=== PATIENT | female | born 1990 | race Two or more races ===

== ENCOUNTER 2018-12-08 13:59 | Inpatient (IN) | payer OTHER ==
[~2018-12-08] VITALS: Ht 165.1 cm; Wt 104.6 kg
[2018-12-08 16:12] VITALS: Ht 165.1 cm; Wt 104.6 kg
[2018-12-08] MEDS ORDERED: PREN-93 PO (16:12)
[2018-12-08 16:13] VITALS: BP 114/62; PULSE 97; RESP 18
--- NOTE | 2018-12-08 16:14 | TRIAGE ---
OB Triage Datetime Report Generated by CPN: 12/08/2018 16:14 Datetime: 12/08/2018 14:55 Stage of : OB Triage Maternal Assessment Level of Consciousness: Fully Conscious Labor Evaluation Frequency: 2UC/HR Monitor Mode: External Duration (sec)2399: 30 Quality: Mild Resting Tone [place]: Relaxed Heart Rate FHR Baseline Rate: 145 Monitor Mode: External US Variability: Moderate 6-25 bpm Accelerations: 15X15 Decelerations: None Category: Category I Pain Assessment Pain Scale: 0 Pain Goal: 3 Vaginal Exam Membrane Status: Intact Vaginal Bleeding: None Datetime: 12/08/2018 14:22 Assessment Type: Triage Maternal Assessment Level of Consciousness: Fully Conscious DTR's/Clonus: DTRs 2+; No Clonus Headache: Denies Blurred Vision: No Respiratory Effort: Unlabored; Regular Rhythm; Equal Expansion Breath Sounds, Left: Clear and Equal Breath Sounds, Right: Clear and Equal Nausea/Vomiting: Denies RUQ Epigastric Pain: Denies Lower Extremities Edema: None Degree: None Upper Extremities Edema: None Degree: None Facial Edema: None Fall Risk Assessment History of Falling: (0) No Secondary Diagnosis: (0) No Ambulatory Aid: (0) Bedrest/Nurse Assist IV Therapy: (0) No Gait: (0) Normal/Bedrest/Immobile Mental Status: (0) Oriented to Own Ability Fall Score: 0 Fall Risk Score Definition: No Risk: No action required Datetime: 12/08/2018 14:21 Time of Arrival: 12/08/2018 13:53 EGA: 26.2 Arrived By: Ambulatory Arrived From: Office Chief Complaint: PT. SENT IN FOR EVAL. OF DFM Movement: Decreased Contractions: Denies/Absent Rupture of Membranes: Denies Vaginal Bleeding: None Vaginal Discharge: Denies Recent Sexual Intercouse: Denies Abdominal Trauma: Not Applicable Patient Complaints: None Time Provider Notified: 12/08/2018 14:52 Provider Notified: JEFF Initial Plan: NST/BPP/EFW Datetime: 12/08/2018 14:15 Monitor Mode: External Monitor Mode: External US
[2018-12-08] MEDS ORDERED: ACETAMINOPHEN 325 MG TAB PO PRN (16:30)
--- NOTE | 2018-12-08 16:57 | HP ---
Date/Time of Note Date/Time of Note DATE: 12/08/18 TIME: 16:49 OB - History Hx of Present Free Text/Dictation 28-year-old week twin gestation at 26 weeks and 2 days with a NARA of 03/14/2019 complaining of decreased movement. She denies nausea, vomiting, shortness of breath, chest pain, headache, visual changes, vaginal bleeding or LOF. Chief Complaint: Decreased movement Estimated Due Date: Mar 14, 2019 : 7 Para: 5 Spontaneous : 1 Therapeutic : 0 Care: Good Care Ultrasounds: Normal mid trimester US Obstetrical Complications: None Medical Complications: None Past Family/Social History * Past Medical, Surgical, Family and Obstetric Histories reviewed from chart. OB Admission Exam Vital Signs Vital Signs Vital Signs Date Temp Pulse Resp B/P (MAP) Pulse Ox O2 O2 Flow FiO2 Time Delivery Rate 12/08/18 99.0 97 18 114/62 Room Air 16:13 (79) Physical Exam HEENT: WNL Heart: Rhythm Normal Lungs: Clear Abdomen: WNL Extremities: Normal Membranes: Intact Heart Rate: 140's Accelerations: Accelerations Present Decelerations: No Decelerations Varibility: Moderate Contractions on Admission: < 5 Minutes Apart Intensity: Mild OB Assessment/Plan Other plan: 28-year-old 7 para 2316 with twin gestation at 26 weeks and 2 days with uterine contractions - FHRs: No sign of metabolic acidosis- Category I - Continuous EFM, toco - CBC, blood type and screen - Urinalysis with urine culture - Obtained records from her primary OB office - Patient discussed with Dr. Chavarria, she would like IV fluid given. If still has contraction the nurse contact her - Please see the orders Admission, management, possible treatment with magnesium sulfate and dexamethasone discussed with patient and her family in detail. All expressed understanding. Follow her closely, base of her contraction pattern dexamethasone and magnesium sulfate will be given. Follow-up of care of patient with Dr. Underwood. BUSTER MAGALLON Dec 08, 2018 16:57
[2018-12-08] MEDS ORDERED: MAGNESIUM SULFATE 4 GM/100 ML 100 ML IV ONE (17:00)
[2018-12-08] MEDS: LACTATED RINGER'S 1,000 ML IV SCH ×3 (17:03→22:06)
[2018-12-08] MEDS: MAGNESIUM SULFATE 20 GM/500 ML 500 ML IV SCH (17:37)
[2018-12-08] MEDS: DEXAMETHASONE 4 MG/ML 5 ML INJ IM SCH (17:55)
[2018-12-09] MEDS: MAGNESIUM SULFATE 20 GM/500 ML 500 ML IV SCH ×3 (03:57→23:29)
[2018-12-09] MEDS: DEXAMETHASONE 4 MG/ML 5 ML INJ IM SCH ×2 (06:02→19:08)
[2018-12-09] MEDS: LACTATED RINGER'S 1,000 ML IV SCH ×2 (12:08→23:30)
[2018-12-10] MEDS: DEXAMETHASONE 4 MG/ML 5 ML INJ IM SCH (06:09)
[2018-12-10] MEDS: LACTATED RINGER'S 1,000 ML IV SCH (10:56)
--- NOTE | 2018-12-12 17:40 | PREOPHP ---
DATE OF ADMISSION: 12/08/2018 HISTORY OF PRESENT ILLNESS: This is a 28-year-old lady, 7, para 5, EDC 03/14/2019, admitted to labor and delivery area for observation. The patient complains of lower abdominal pain. She has low back pains for the last few hours and getting worse up to the time of admission. She is known to have twin , dichorionic and diamniotic twins. She is about 26 and 3/7 weeks, so she was ad mitted for observation. She complains of lower abdominal pains. She has low back pains for the last few hours. PAST PERSONAL HISTORY: No history of diabetes, TB, asthma. ALLERGIES: NO ALLERGIES. SOCIAL HISTORY: The patient does not smoke. She does not drink. MEDICATIONS: She does not take any drugs except her: 1. Iron. 2. Vitamins. GYNECOLOGIC HISTORY: She had menarche at the age of 10, every 28 days interval, 3 to 4 days duration and moderate in amount. FAMILY HISTORY: Father has diabetes. Mother has hypertension. OBSTETRIC HISTORY: She is 7, para 5. Her first delivery was in 2006, second in 2007. These were twin . Third was 2008, fourth was 2010, fifth was 2013, all normal deliveries. She h ad 1 in 2014. REVIEW OF SYSTEMS: CARDIOVASCULAR: No chest pains. RESPIRATORY: No cough. GASTROINTESTINAL: No diarrhea, no vomiting. GENITOURINARY: No dysuria. PHYSICAL EXAMINATION: GENERAL: Reveals a conscious, coherent lady and in no acute distress. VITAL SIGNS: Her blood pressure 120/80, pulse rate 80 per minute, respirations 16 per minute. BREASTS, HEART AND LUNGS: Within normal limits. ABDOMEN: Soft. No organomegaly. Fundic height is 30 cm. heart tones are 140 per minute x2. PELVIC: Revealed the cervix to be closed. EXTREMITIES: No pedal edema. ADMITTING DIAGNOSES: 1. A 26 and 3/7 weeks' intrauterine , twins. 2. Rule out labor. The patient was given IV hydration. Ultrasound was done and both babies are normal. Dr. Espinoza was c onsulted and she advised to give betamethasone and magnesium sulphate, so she was given IV hydration, dexamethasone to be given x4 doses and magnesium sulfate. The plans were explained to the patient a nd she understood everything totally. The risks, benefits and alternatives were discussed with her a s well. Dictated By: LARISSA ALEXIS/PAGE Conf#: [id number] DID#: [id number]
--- NOTE | 2018-12-12 17:43 | PN ---
DATE: 12/09/2018 SUBJECTIVE: The patient feels good, almost no contractions. OBJECTIVE: VITAL SIGNS: She is afebrile. Vital signs are stable. ABDOMEN: Soft. heart tones normal x2. GENITOURINARY: No vaginal bleeding. EXTREMITIES: No calf tenderness. ASSESSMENT: A 26 and 4/7 weeks' intrauterine , twin and a resolving labor . The patient was planned to continue with her magnesium as well as dexamethasone. She was advised to be discharged at least 24 hours after the dexamethasone was given, but the patient refused. She want ed to be discharged home after the fourth dose of betamethasone. Dictated By: LARISSA ALEXIS/PAGE Conf#: [id number] DID#: [id number]
--- NOTE | 2018-12-12 18:11 | DS ---
DATE OF ADMISSION: 12/08/2018 DATE OF DISCHARGE: 12/10/2018 HISTORY OF PRESENT ILLNESS: See dictated history and physical. PHYSICAL EXAMINATION: See dictated history and physical. ADMITTING DIAGNOSES: A 26 and 3/7 weeks' intrauterine , dehydration and labor. HOSPITAL COURSE: The patient was given betamethasone and magnesium sulfate and she did well during o bservation. On the first day and second day of observation, patient was feeling good. She did not f eel any more contractions. She wanted to go home on 12/10/2018 so she was discharged home after the fourth dose of dexamethasone. She was discharged home in good and stable condition, on general diet and activity was restricted. She was counseled. She was instructed. She was told to go back to the clinic in 2 weeks. She was discharged home in good and stable condition and to see the perinatologi st after discharge. FINAL DIAGNOSES: A 26 and 5/7 weeks' intrauterine twin , resolved labor. Dictated By: LARISSA ALEXIS/PAGE Conf#: [id number] DID#: [id number]
== END 2018-12-10 12:30 | disposition home or self-care (01) | DRG 831 ==
LOC: L-D 13:59 → OBT 13:59 → L-D 16:09 → OBT 16:09 → L-D 19:49
PROVIDERS: ADMIT Obstetrics & Gynecology; ATTEND Obstetrics & Gynecology
DX: O30.042 Twin pregnancy, dichorionic/diamniotic, second trimester (principal); O60.02 Preterm labor without delivery, second trimester; O26.892 Other specified pregnancy related conditions, second trimester; E86.0 Dehydration; Z3A.26 26 weeks gestation of pregnancy
CPT/HCPCS: 76815; 76817; 76818; 83735; 85025; 85610; 85730; 86592; 86850; 86870; 86900; 86901; G0463; J1100; J3475; J7120

== ENCOUNTER 2019-02-10 12:09 | Inpatient (IN) | payer OTHER ==
[~2019-02-10] VITALS: Ht 165.1 cm; Wt 104.2 kg
[~2019-02-10 12:09] MED LIST: OXYTOCIN 30 UNITS/LR 500 ML BAG IV ONE; PREN-93 PO
[2019-02-10] MEDS ORDERED: LACTATED RINGER'S 1,000 ML IV ONE (13:00)
[2019-02-10] MEDS ORDERED: LACTATED RINGER'S 1,000 ML IV SCH ×2 (14:30→21:33)
[2019-02-10] MEDS ORDERED: ACETAMINOPHEN 325 MG TAB PO PRN (16:00)
[2019-02-10] MEDS ORDERED: AL HYDROX/MG HYDROX/SIMETH 30 ML CUP PO PRN (16:00)
--- NOTE | 2019-02-10 16:31 | TRIAGE ---
OB Triage Datetime Report Generated by CPN: 02/10/2019 16:31 Datetime: 02/10/2019 16:27 Assessment Type: Admission Assessment Vaginal Bleeding: None Maternal Assessment Level of Consciousness: Fully Conscious DTR's/Clonus: DTRs 2+; No Clonus Headache: Denies Blurred Vision: No Respiratory Effort: Unlabored; Regular Rhythm; Equal Expansion Breath Sounds, Left: Clear and Equal Breath Sounds, Right: Clear and Equal Nausea/Vomiting: Denies RUQ Epigastric Pain: Denies Lower Extremities Edema: None Degree: None Upper Extremities Edema: None Facial Edema: None Fall Risk Assessment History of Falling: (0) No Secondary Diagnosis: (0) No Ambulatory Aid: (0) Bedrest/Nurse Assist IV Therapy: (20) Yes Gait: (0) Normal/Bedrest/Immobile Mental Status: (0) Oriented to Own Ability Fall Score: 20 Fall Risk Score Definition: No Risk: No action required Pain Assessment Pain Scale: 8 Pain Presence: Intermittent Pain Type: Contraction Pain Location: Abdomen Datetime: 02/10/2019 16:25 Time of Arrival: 02/10/2019 16:00 EGA: 35.3 Arrived From: Dr. Office Datetime: 02/10/2019 12:19 Temperature Route: Oral Datetime: 02/10/2019 09:59 Time of Arrival: 02/10/2019 12:10 EGA: 35.3 Arrived By: Ambulatory Arrived From: Dr. Office Chief Complaint: contractions Movement: Present Contractions: Regular Contractions: 2-6 Rupture of Membranes: Denies Vaginal Bleeding: None Vaginal Discharge: Present Recent Sexual Intercouse: Denies Abdominal Trauma: Not Applicable Patient Complaints: Contractions Time Provider Notified: 02/10/2019 12:50 Provider Notified: Salceda Initial Plan: NST, BPP, EFW, CL, CBC, CMP, IV hydration Datetime: 12/10/2018 21:00 Stage of : Antepartum Datetime: 12/10/2018 12:03 Labor Evaluation Frequency: none Monitor Mode: External Resting Tone [place]: Relaxed Datetime: 12/10/2018 12:02 Stage of : Antepartum Temperature Route: Oral Pain Assessment Pain Scale: 0 Pain Presence: None/Denies Pain Type: N/A Datetime: 12/10/2018 11:01 Labor Evaluation Frequency: x1 Monitor Mode: External Duration (sec)2399: 60 Quality: Mild Resting Tone [place]: Relaxed Datetime: 12/10/2018 10:06 Labor Evaluation Frequency: x1 Monitor Mode: External Duration (sec)2399: 60 Quality: Mild Resting Tone [place]: Relaxed Contraction Comments: pt denies feeling US Heart Rate FHR Baseline Rate: 135 Monitor Mode: External US FHR Baseline Changes: No Baseline Change Variability: Moderate 6-25 bpm Accelerations: 10X10 Decelerations: Variable Comments: appropriate for GA Datetime: 12/10/2018 09:37 Labor Evaluation Frequency: none Monitor Mode: External Resting Tone [place]: Relaxed Datetime: 12/10/2018 09:00 Labor Evaluation Frequency: none Monitor Mode: External Resting Tone [place]: Relaxed Datetime: 12/10/2018 08:06 Assessment Type: Ongoing Assessment Maternal Assessment Level of Consciousness: Fully Conscious DTR's/Clonus: DTRs 2+; No Clonus Headache: Denies Blurred Vision: No Respiratory Effort: Unlabored; Regular Rhythm; Equal Expansion Breath Sounds, Left: Clear and Equal Breath Sounds, Right: Clear and Equal Nausea/Vomiting: Denies RUQ Epigastric Pain: Denies Lower Extremities Edema: None Degree: None Upper Extremities Edema: None Degree: None Facial Edema: None Fall Risk Assessment History of Falling: (0) No Secondary Diagnosis: (0) No Ambulatory Aid: (0) Bedrest/Nurse Assist IV Therapy: (20) Yes Gait: (0) Normal/Bedrest/Immobile Mental Status: (0) Oriented to Own Ability Fall Score: 20 Fall Risk Score Definition: No Risk: No action required Datetime: 12/10/2018 07:58 Stage of : Antepartum Temperature Route: Oral Pain Assessment Pain Scale: 0 Pain Presence: None/Denies Pain Type: N/A Datetime: 12/10/2018 07:52 Labor Evaluation Frequency: none Monitor Mode: External Resting Tone [place]: Relaxed Datetime: 12/10/2018 06:59 Stage of : Antepartum Labor Evaluation Frequency: NONE Monitor Mode: External Resting Tone [place]: Relaxed Datetime: 12/10/2018 06:00 Stage of : Antepartum Labor Evaluation Frequency: NONE Monitor Mode: External Resting Tone [place]: Relaxed Datetime: 12/10/2018 05:11 Temperature Route: Oral Datetime: 12/10/2018 05:00 Stage of : Antepartum Labor Evaluation Frequency: NONE Monitor Mode: External Resting Tone [place]: Relaxed Datetime: 12/10/2018 04:00 Stage of : Antepartum Labor Evaluation Frequency: X3 IN ONE HOUR Monitor Mode: External Duration (sec)2399: 50-70 Quality: Mild Resting Tone [place]: Relaxed Datetime: 12/10/2018 03:00 Stage of : Antepartum Labor Evaluation Frequency: X3 IN ONE HOUR Monitor Mode: External Duration (sec)2399: 40-50 Quality: Mild Resting Tone [place]: Relaxed Datetime: 12/10/2018 02:00 Stage of : Antepartum Labor Evaluation Frequency: X3 IN ONE HOUR Monitor Mode: External Duration (sec)2399: 40-50 Quality: Mild Resting Tone [place]: Relaxed Datetime: 12/10/2018 01:00 Stage of : Antepartum Labor Evaluation Frequency: NONE Monitor Mode: External Resting Tone [place]: Relaxed Datetime: 12/10/2018 00:00 Stage of : Antepartum Labor Evaluation Frequency: NONE Monitor Mode: External Resting Tone [place]: Relaxed Datetime: 12/09/2018 23:00 Stage of : Antepartum Labor Evaluation Frequency: NONE Monitor Mode: External Resting Tone [place]: Relaxed Datetime: 12/09/2018 22:00 Stage of : Antepartum Labor Evaluation Frequency: NONE Monitor Mode: External Resting Tone [place]: Relaxed Datetime: 12/09/2018 21:00 Stage of : Antepartum Labor Evaluation Frequency: NONE Monitor Mode: External Resting Tone [place]: Relaxed Datetime: 12/09/2018 20:27 Heart Rate FHR Baseline Rate: 135 Monitor Mode: External US Variability: Moderate 6-25 bpm Accelerations: 10X10 Decelerations: None Comments: APPROPRIATE FOR GA Comments: US REMOVED; NST COMPLETE Datetime: 12/09/2018 20:03 Contraction Comments: TOCO APPLIED Comments: US APPLIED; NST STARTED Datetime: 12/09/2018 19:50 Stage of : Antepartum Assessment Type: Ongoing Assessment Maternal Assessment Level of Consciousness: Fully Conscious DTR's/Clonus: DTRs 2+; No Clonus Headache: Denies Blurred Vision: No Respiratory Effort: Unlabored; Regular Rhythm; Equal Expansion Breath Sounds, Left: Clear and Equal Breath Sounds, Right: Clear and Equal Nausea/Vomiting: Denies RUQ Epigastric Pain: Denies Lower Extremities Edema: None Degree: None Upper Extremities Edema: None Degree: None Facial Edema: None Temperature Route: Oral Fall Risk Assessment History of Falling: (0) No Secondary Diagnosis: (0) No Ambulatory Aid: (0) Bedrest/Nurse Assist IV Therapy: (20) Yes Gait: (0) Normal/Bedrest/Immobile Mental Status: (0) Oriented to Own Ability Fall Score: 20 Fall Risk Score Definition: No Risk: No action required Datetime: 12/09/2018 19:19 Stage of : Antepartum Datetime: 12/09/2018 18:00 Labor Evaluation Frequency: 0 Monitor Mode: External Datetime: 12/09/2018 17:00 Labor Evaluation Frequency: 0 Monitor Mode: External Heart Rate FHR Baseline Rate: 140 Monitor Mode: External US FHR Baseline Changes: No Baseline Change Variability: Moderate 6-25 bpm Accelerations: None Datetime: 12/09/2018 16:00 Labor Evaluation Frequency: 0 Monitor Mode: External Datetime: 12/09/2018 15:00 Labor Evaluation Frequency: 0 Monitor Mode: External Datetime: 12/09/2018 14:01 Stage of : Antepartum Labor Evaluation Frequency: 0 Monitor Mode: External Pattern: Normal: <= 5 Contractions in 10 Minutes Resting Tone [place]: Relaxed Datetime: 12/09/2018 13:55 Stage of : Antepartum Datetime: 12/09/2018 13:00 Labor Evaluation Frequency: 0 Monitor Mode: External Monitor Mode: External US Datetime: 12/09/2018 12:00 Labor Evaluation Frequency: 0 Monitor Mode: External Datetime: 12/09/2018 11:03 Labor Evaluation Frequency: 0 Monitor Mode: External Datetime: 12/09/2018 09:46 Labor Evaluation Frequency: 0 Monitor Mode: External Resting Tone [place]: Relaxed Heart Rate FHR Baseline Rate: 145 Monitor Mode: External US FHR Baseline Changes: No Baseline Change Variability: Moderate 6-25 bpm Decelerations: None Datetime: 12/09/2018 08:26 Labor Evaluation Frequency: 0 Monitor Mode: External Pattern: Normal: <= 5 Contractions in 10 Minutes Heart Rate FHR Baseline Rate: 140 Monitor Mode: External US FHR Baseline Changes: No Baseline Change Variability: Moderate 6-25 bpm Accelerations: 10X10 Decelerations: None Category: Category I Datetime: 12/09/2018 08:25 Stage of : Antepartum Temperature Route: Oral Pain Assessment Pain Scale: 3 Pain Presence: Constant Pain Type: Pressure; Ache Pain Location: Head Pain Goal: 0 Pain Relief Measures: Pain Medication Given; Comfort Measures Datetime: 12/09/2018 07:00 Stage of : Antepartum Labor Evaluation Frequency: X2 IN ONE HOUR Monitor Mode: External Duration (sec)2399: 30-40 Quality: Mild Resting Tone [place]: Relaxed Heart Rate FHR Baseline Rate: 135 Monitor Mode: External US Variability: Moderate 6-25 bpm Accelerations: 15X15 Decelerations: None Pain Assessment Pain Scale: 6 Pain Presence: Intermittent Pain Type: Ache Pain Location: Head Pain Goal: 6 Pain Relief Measures: Pain Medication Given Datetime: 12/09/2018 06:00 Stage of : Antepartum Labor Evaluation Frequency: X2 IN ONE HOUR Monitor Mode: External Duration (sec)2399: 40-60 Quality: Mild Resting Tone [place]: Relaxed Heart Rate FHR Baseline Rate: 135 Monitor Mode: External US Variability: Moderate 6-25 bpm Accelerations: 15X15 Decelerations: None Pain Assessment Pain Scale: 6 Pain Presence: Intermittent Pain Type: Contraction Pain Location: Abdomen Pain Goal: 6 Pain Relief Measures: Comfort Measures Datetime: 12/09/2018 05:00 Stage of : Antepartum Labor Evaluation Frequency: X4 IN ONE HOUR Monitor Mode: External Duration (sec)2399: 40-60 Quality: Mild Resting Tone [place]: Relaxed Heart Rate FHR Baseline Rate: 135 Monitor Mode: External US Variability: Moderate 6-25 bpm Accelerations: 15X15 Decelerations: None Comments: SOME LOSS OF CONTACT DUE TO PT ON SIDE Pain Assessment Pain Scale: 0 Pain Presence: None/Denies Pain Type: N/A Pain Goal: 6 Datetime: 12/09/2018 04:18 Temperature Route: Oral Datetime: 12/09/2018 04:00 Stage of : Antepartum Labor Evaluation Frequency: X2 IN ONE HOUR Monitor Mode: External Duration (sec)2399: 30-40 Quality: Mild Resting Tone [place]: Relaxed Heart Rate FHR Baseline Rate: 140 Monitor Mode: External US Variability: Moderate 6-25 bpm Accelerations: 15X15 Decelerations: None Pain Assessment Pain Scale: 0 Pain Presence: None/Denies Pain Type: N/A Pain Goal: 6 Datetime: 12/09/2018 03:00 Stage of : Antepartum Labor Evaluation Frequency: X2 IN ONE HOUR Monitor Mode: External Duration (sec)2399: 50-60 Quality: Mild Resting Tone [place]: Relaxed Heart Rate FHR Baseline Rate: 140 Monitor Mode: External US Variability: Moderate 6-25 bpm Accelerations: 15X15 Decelerations: None Pain Assessment Pain Scale: 0 Pain Presence: None/Denies Pain Type: N/A Pain Goal: 6 Datetime: 12/09/2018 02:00 Stage of : Antepartum Labor Evaluation Frequency: IRREGULAR Monitor Mode: External Duration (sec)2399: 40-70 Quality: Mild Resting Tone [place]: Relaxed Heart Rate FHR Baseline Rate: 140 Monitor Mode: External US Variability: Moderate 6-25 bpm Accelerations: 15X15 Decelerations: None Pain Assessment Pain Scale: 6 Pain Presence: Intermittent Pain Type: Contraction Pain Location: Abdomen Pain Goal: 6 Pain Relief Measures: Comfort Measures Datetime: 12/09/2018 01:00 Stage of : Antepartum Labor Evaluation Frequency: 4-7 Monitor Mode: External Duration (sec)2399: 40-70 Quality: Mild Resting Tone [place]: Relaxed Heart Rate FHR Baseline Rate: 140 Monitor Mode: External US Variability: Moderate 6-25 bpm Accelerations: 15X15 Decelerations: None Pain Assessment Pain Scale: 6 Pain Presence: Intermittent Pain Type: Contraction Pain Location: Abdomen Pain Goal: 6 Pain Relief Measures: Comfort Measures Datetime: 12/09/2018 00:00 Stage of : Antepartum Labor Evaluation Frequency: 3-6.5 Monitor Mode: External Duration (sec)2399: 50-90 Quality: Mild Resting Tone [place]: Relaxed Heart Rate FHR Baseline Rate: 140 Monitor Mode: External US Variability: Moderate 6-25 bpm Accelerations: 15X15 Decelerations: None Pain Assessment Pain Scale: 6 Pain Presence: Intermittent Pain Type: Contraction Pain Location: Abdomen Pain Goal: 6 Pain Relief Measures: Comfort Measures Datetime: 12/08/2018 23:53 Stage of : Antepartum Temperature Route: Oral Datetime: 12/08/2018 23:00 Stage of : Antepartum Labor Evaluation Frequency: 3-6 Monitor Mode: External Duration (sec)2399: 50-90 Quality: Mild Resting Tone [place]: Relaxed Heart Rate FHR Baseline Rate: 140 Monitor Mode: External US Variability: Moderate 6-25 bpm Accelerations: 15X15 Decelerations: None Pain Assessment Pain Scale: 6 Pain Presence: Intermittent Pain Type: Contraction Pain Location: Abdomen Pain Goal: 6 Pain Relief Measures: Comfort Measures Datetime: 12/08/2018 22:00 Stage of : Antepartum Labor Evaluation Frequency: 4-6 Monitor Mode: External Duration (sec)2399: 50-90 Quality: Mild Resting Tone [place]: Relaxed Heart Rate FHR Baseline Rate: 140 Monitor Mode: External US Variability: Moderate 6-25 bpm Accelerations: 10X10 Decelerations: None Pain Assessment Pain Scale: 6 Pain Presence: Intermittent Pain Type: Contraction Pain Location: Abdomen Pain Goal: 6 Pain Relief Measures: Comfort Measures Datetime: 12/08/2018 21:00 Stage of : Antepartum Labor Evaluation Frequency: 4-6 Monitor Mode: External Duration (sec)2399: 50-90 Quality: Mild Resting Tone [place]: Relaxed Heart Rate FHR Baseline Rate: 140 Monitor Mode: External US Variability: Moderate 6-25 bpm Accelerations: 10X10 Decelerations: None Pain Assessment Pain Scale: 6 Pain Presence: Intermittent Pain Type: Contraction Pain Location: Abdomen Pain Goal: 6 Pain Relief Measures: Comfort Measures Datetime: 12/08/2018 20:00 Stage of : Antepartum Labor Evaluation Frequency: 3-6 Monitor Mode: External Duration (sec)2399: 50-90 Quality: Mild Resting Tone [place]: Relaxed Heart Rate FHR Baseline Rate: 145 Monitor Mode: External US Variability: Moderate 6-25 bpm Accelerations: 10X10 Decelerations: None Category: Category I Comments: SOME LOSS OF CONTACT DUE TO PT SITTING UP EATING Pain Assessment Pain Scale: 6 Pain Presence: Intermittent Pain Type: Contraction Pain Location: Abdomen Pain Goal: 6 Pain Relief Measures: Comfort Measures Datetime: 12/08/2018 19:40 Stage of : Antepartum Assessment Type: Ongoing Assessment Maternal Assessment Level of Consciousness: Fully Conscious DTR's/Clonus: DTRs 2+; No Clonus Headache: Denies Blurred Vision: No Respiratory Effort: Unlabored; Regular Rhythm; Equal Expansion Breath Sounds, Left: Clear and Equal Breath Sounds, Right: Clear and Equal Nausea/Vomiting: Denies RUQ Epigastric Pain: Denies Lower Extremities Edema: None Degree: None Upper Extremities Edema: None Degree: None Facial Edema: None Temperature Route: Oral Fall Risk Assessment History of Falling: (0) No Secondary Diagnosis: (0) No Ambulatory Aid: (0) Bedrest/Nurse Assist IV Therapy: (20) Yes Gait: (0) Normal/Bedrest/Immobile Mental Status: (0) Oriented to Own Ability Fall Score: 20 Fall Risk Score Definition: No Risk: No action required Datetime: 12/08/2018 19:00 Stage of : OB Triage Maternal Assessment Level of Consciousness: Fully Conscious Labor Evaluation Frequency: 3-5 Monitor Mode: External Duration (sec)2399: 60-120 Quality: Mild Resting Tone [place]: Relaxed Heart Rate FHR Baseline Rate: 145 Monitor Mode: External US FHR Baseline Changes: No Baseline Change Variability: Moderate 6-25 bpm Decelerations: Variable Pain Assessment Pain Scale: 0 Pain Goal: 3 Datetime: 12/08/2018 18:22 Assessment Type: Admission Assessment Vaginal Bleeding: None Maternal Assessment Level of Consciousness: Fully Conscious DTR's/Clonus: DTRs 2+; No Clonus Headache: Denies Blurred Vision: No Respiratory Effort: Unlabored; Regular Rhythm; Equal Expansion Breath Sounds, Left: Clear and Equal Breath Sounds, Right: Clear and Equal Nausea/Vomiting: Denies RUQ Epigastric Pain: Denies Lower Extremities Edema: None Degree: None Upper Extremities Edema: None Degree: None Facial Edema: None Fall Risk Assessment History of Falling: (0) No Secondary Diagnosis: (0) No Ambulatory Aid: (0) Bedrest/Nurse Assist IV Therapy: (0) No Gait: (0) Normal/Bedrest/Immobile Mental Status: (0) Oriented to Own Ability Fall Score: 0 Fall Risk Score Definition: No Risk: No action required Labor Evaluation Frequency: 3-5 Duration (sec)2399: 70 Quality: Moderate Pattern: Normal: <= 5 Contractions in 10 Minutes Resting Tone [place]: Relaxed Heart Rate FHR Baseline Rate: 140 Variability: Minimal - Undetectable to <=5 bpm Accelerations: 10X10 Decelerations: Late Pain Assessment Pain Scale: 6 Pain Presence: Intermittent Pain Type: Cramping Pain Location: Abdomen; Back Pain Goal: 2 Vaginal Exam Membrane Status: Intact Datetime: 12/08/2018 18:00 Stage of : OB Triage Maternal Assessment Level of Consciousness: Fully Conscious Labor Evaluation Frequency: 3-5 Monitor Mode: External Duration (sec)2399: 60-120 Quality: Mild Resting Tone [place]: Relaxed Heart Rate FHR Baseline Rate: 145 Monitor Mode: External US FHR Baseline Changes: No Baseline Change Variability: Moderate 6-25 bpm Decelerations: Variable Pain Assessment Pain Scale: 0 Pain Goal: 3 Vaginal Exam Membrane Status: Intact Vaginal Bleeding: None Datetime: 12/08/2018 17:34 Stage of : Antepartum Datetime: 12/08/2018 17:00 Stage of : OB Triage Maternal Assessment Level of Consciousness: Fully Conscious Labor Evaluation Frequency: 3-5 Monitor Mode: External Duration (sec)2399: 60-120 Quality: Mild Resting Tone [place]: Relaxed Pain Assessment Pain Scale: 0 Pain Goal: 3 Vaginal Exam Membrane Status: Intact Vaginal Bleeding: None Datetime: 12/08/2018 16:00 Stage of : OB Triage Maternal Assessment Level of Consciousness: Fully Conscious Labor Evaluation Frequency: 2-4 Monitor Mode: External Duration (sec)2399: 80-110 Quality: Mild Resting Tone [place]: Relaxed Pain Assessment Pain Scale: 0 Pain Goal: 3 Vaginal Exam Membrane Status: Intact Vaginal Bleeding: None Datetime: 12/08/2018 14:22 Fall Score: 0 Fall Risk Score Definition: No Risk: No action required Datetime: 12/08/2018 14:21 EGA: 26.2
[2019-02-10] MEDS: CEFAZOLIN 2 GM/50 ML (PMX) 50 ML IVPB SCH ×2 (16:55→22:00)
[2019-02-10] MEDS ORDERED: BUTORPHANOL 2 MG INJ IV PRN (17:00)
[2019-02-10] MEDS ORDERED: CEFAZOLIN 2 GM/50 ML (PMX) 50 ML IVPB SCH (18:00)
[2019-02-10] MEDS ORDERED: CARBOPROST 250 MCG INJ IM PRN ×2 (18:00→22:00)
[2019-02-10] MEDS ORDERED: MISOPROSTOL 200 MCG TAB PR PRN ×2 (18:00→22:00)
[2019-02-10] MEDS ORDERED: OXYTOCIN 30 UNITS/LR 500 ML IV SCH ×2 (18:00→21:33)
[2019-02-10] MEDS ORDERED: METHYLERGONOVINE 0.2 MG INJ IM PRN ×2 (18:00→22:00)
[2019-02-10] MEDS ORDERED: OXYTOCIN 30 UNITS/LR 500 ML IV PRN ×2 (18:00→22:00)
--- NOTE | 2019-02-10 19:18 | PREAC ---
Date/Time of Note Date/Time of Note DATE: 02/10/19 TIME: 19:17 Anesthesia Eval and Record Evaluation Time Pre-Procedure Interview DATE: 02/10/19 TIME: 19:17 Age 29 Sex female NPO: 8 hrs Preoperative diagnosis Twin in labor Planned procedure Primary Past Medical History Past Medical History: Includes Heme: Anemia : : (6), Para: (5), Gestational age: (33) Surgery & Anesthesia Issues No known issue Meds Anticoagulation: No Beta Radha within 24 hr: No Reason Beta Radha not given: Pt. not on B-Radha Reported Medications Vit No.124/Iron/FA ( Vitamin Tablet) 1 Each Tablet, 1 EACH PO DAILY, TAB 12/08/18 Current Medications Lactated Ringer's 1,000 ml @ 125 mls/hr Q8H IV ; Start 02/10/19 at 15:52 Cefazolin Sodium/ Dextrose 50 ml @ 100 mls/hr Q8 IVPB Last administered on 02/10/19at 16:55; Admin Dose 100 MLS/HR; Start 02/10/19 at 16:00 Prenat Multivit/ Staff Consultant/Iron/Folic Ac () 1 tab DAILY PO ; Start 02/11/19 at 09:00 Acetaminophen (Tylenol Tab) 650 mg Q4H PRN PO .PAIN OR TEMP; Start 02/10/19 at 16:00 Al Hydrox/Mg Hydrox/Simethicone (Mag-Al Plus) 30 ml Q6H PRN PO .GI UPSET; Start 02/10/19 at 16:00 Butorphanol Tartrate (Stadol) 2 mg Q2H PRN IV .PAIN Last administered on 02/10/19at 16:55; Admin Dose 2 MG; Start 02/10/19 at 17:00 Oxytocin/Lactated Ringer's 500 ml @ 125 mls/hr POST IV ; Start 02/10/19 at 18:00 Oxytocin/Lactated Ringer's 500 ml @ 0 mls/hr ONCE PRN IV .VAGINAL BLEEDING; Start 02/10/19 at 18:00 Methylergonovine Maleate (Methergine) 0.2 mg ONCE PRN IM .VAGINAL BLEEDING; Start 02/10/19 at 18:00 Carboprost Tromethamine (Hemabate) 250 mcg ONCE PRN IM .VAGINAL BLEEDING; Start 02/10/19 at 18:00 Misoprostol (Cytotec) 1,000 mcg ONCE PRN OR .VAGINAL BLEEDING; Start 02/10/19 at 18:00 Meds reviewed: Yes Allergies Coded Allergies: No Known Allergy (Unverified , 12/08/18) Allergies Reviewed: Yes Labs/Studies Labs Reviewed: Reviewed by anesthesiologist Result Diagram: 02/10/19 1315 02/10/19 1315 Laboratory Tests 02/10/19 13:15 test: Positive Studies: ECG (n/a), CXR (n/a) Pre-procedure Exam Airway: Adequate mouth opening, Adequate thyromental dist Mallampati: Mallampati II Teeth: Normal Lung: Normal Heart: Normal ASA Physical Status ASA physical status: 2 Emergency: None Planned Anesthetic Neuraxial: Spinal Planned Pain Management Sub-arachniod narcotics, Parenteral pain med Pre-operative Attestations Prior to commencing anesthesia and surgery, the patient was re-evaluated, there was verification of: *The patient's identity *The results of appropriate recent lab work and preoperative vital signs *The above evaluation not changing prior to induction *Anesthetic plan, risk benefits, alternative and complications discussed with patient/family; questions answered; patient/family understands, accepts and wishes to proceed. RIZWAN ADORNO MD February 10, 2019 19:18
[2019-02-10 19:21] VITALS: Ht 165.1 cm; Wt 104.2 kg
[2019-02-10] MEDS: LACTATED RINGER'S 1,000 ML IV SCH ×2 (19:21→23:52)
[2019-02-10] MEDS ORDERED: CITRIC ACID/NA CITRATE 30 ML CUP PO ONE (19:30)
[2019-02-10] MEDS ORDERED: ONDANSETRON 4 MG INJ IV ONE (19:30)
[2019-02-10] MEDS ORDERED: morphine SULFATE/PF (10 MG/10 ML) INJ ONE (20:25)
[2019-02-10] MEDS ORDERED: PHENYLephrine (100 MCG/ML) 10ML SYG ONE (20:25)
[2019-02-10] MEDS ORDERED: OXYTOCIN 10 UNIT INJ ONE (20:26)
--- NOTE | 2019-02-10 20:26 | PREOPHP ---
DATE OF ADMISSION: 02/10/2019 HISTORY OF PRESENT ILLNESS: This is a 29-year-old lady, 7, para 6, EDC 03/14/2019, and she i s about 35 and 3/7 weeks , admitted to labor and delivery area to rule out labor. She had pr enatal care in my [place] office and the care was uneventful. She is known to be in twin pr egnancy. She started to have contractions about a few hours prior to admission. PAST PERSONAL HISTORY: No history of diabetes, TB, asthma. ALLERGIES: NO ALLERGIES. SOCIAL HISTORY: Patient does not smoke. She does not drink. MEDICATIONS: She does not take any drugs except her iron and vitamins. GYNECOLOGIC HISTORY: She had menarche at the age of 10, every 28 days interval, 3 to 4 days duration , and moderate in amount. FAMILY HISTORY: Noncontributory. OBSTETRIC HISTORY: She is 5, para 6. Her first delivery was in 2006. Second is 2007 twin p regnancy. Third 2008. Fourth 2010. Fifth 2013. All normal deliveries. REVIEW OF SYSTEMS: CARDIOVASCULAR: No chest pains. RESPIRATORY: No cough. GASTROINTESTINAL: No diarrhea, no vomiting. GENITOURINARY: No dysuria. PHYSICAL EXAMINATION: GENERAL: Reveals a conscious, coherent lady and in no acute distress. VITAL SIGNS: Her blood pressure 120/80, pulse rate 80 per minute, respirations 16 per minute. BREASTS, HEART AND LUNGS: Within normal limits. ABDOMEN: Soft, fundic height 38 cm. heart tones 140 per minute per baby. PELVIC: Done by me at 7:30 p.m. revealed the cervix to be 4 cm dilated, 100% effaced, station floati ng in cephalic presentation with the bag of water intact. EXTREMITIES: No pedal edema. ADMITTING DIAGNOSIS: A 35 and 3/7 weeks' intrauterine , twin , rule out labor. Th e patient was observed in the hospital. She continued to have contractions every 2 to 3 minutes. Sh e was given Stadol and the patient still complains of pain and she claims it is a 9/10, so Dr. King morgan as consulted and she advised delivery. The patient is in active labor. The plans of delivery were e xplained to the patient as to go for . The risks, benefits, and alternatives to w as explained to the patient and she understood everything totally. She also wanted to go for tubal l igation, so he was scheduled to have a primary , plus tubal ligation. Dictated By: LARISSA ALEXIS/PAGE Conf#: [id number] DID#: [id number]
[2019-02-10] MEDS ORDERED: DEXAMETHASONE 4 MG/ML 1 ML INJ ONE (20:53)
[2019-02-10] MEDS ORDERED: METOCLOPRAMIDE 10 MG INJ ONE (20:53)
[2019-02-10] MEDS ORDERED: KETOROLAC 30 MG INJ ONE (20:53)
[2019-02-10] MEDS ORDERED: HYDROCODONE/APAP (5/325) TAB PO PRN ×2 (21:00→22:00)
[2019-02-10] MEDS ORDERED: HYDROmorphONE 0.5 MG/0.5 ML SYG IV PRN ×2 (21:00)
[2019-02-10] MEDS ORDERED: ALBUMIN HUMAN 5% 250 ML IV PRN (21:00)
[2019-02-10] MEDS ORDERED: NALOXONE (0.4 MG/ML) INJ IV PRN (21:00)
[2019-02-10] MEDS ORDERED: NALBUPHINE HCL (10 MG/1 ML) INJ IV PRN (21:00)
[2019-02-10] MEDS ORDERED: EPHEDrine SULFATE 50 MG/5 ML SYG IV PRN (21:00)
[2019-02-10] MEDS ORDERED: DIPHENHYDRAMINE 50 MG INJ IV PRN (21:00)
[2019-02-10] MEDS ORDERED: morphine 2 MG INJ IV PRN ×2 (21:00)
[2019-02-10] MEDS ORDERED: ACETAMINOPHEN 500 MG TAB PO PRN (21:00)
--- NOTE | 2019-02-10 21:33 | OPPN ---
Date/Time of Note Date/Time of Note DATE: 02/10/19 TIME: 21:31 Operative Report Planned Procedure Procedure date February 10, 2019 Procedure(s) PRIMARY CSECTION AND BTL Performed by see signature line Patient Financial Specialist: VICKEY SINGH 2nd Patient Financial Specialist none Pre-procedure diagnosis 35 WEEKS TWINS MULTIPARITY [id number] Anesthesia Type: [id number] spinal Post-Procedure Post-procedure diagnosis 35 WEEKS TWINS MULTIPARITY Findings TWIN A Live Baby BOY , Apgars 9and 9, [id number] GRAMS TWIN B LIVE GIRL 8/9 2425 GRAMS Estimated Blood Loss: 600 - 700 mls Specimen(s) none Grafts/Implant(s) PLACENTA TUBES Complication(s) none LARISSA AGUILAR MD February 10, 2019 21:33
--- NOTE | 2019-02-10 21:40 | PAC ---
Date/Time of Note Date/Time of Note DATE: 02/10/19 TIME: 21:40 Post-Anesthesia Notes Post-Anesthesia Note Last documented vital signs T:98.0 Activity: WNL Respiratory function: WNL Cardiovascular function: WNL Mental status: Baseline Pain reasonably controlled: Yes Hydration appropriate: Yes Nausea/Vomiting absent: Yes RIZWAN ADORNO MD February 10, 2019 21:40
[2019-02-10] MEDS ORDERED: METHYLERGONOVINE 0.2 MG TAB PO PRN (22:00)
[2019-02-10] MEDS ORDERED: LANOLIN HPA 1 PKT TOP PRN (22:00)
[2019-02-10] MEDS: ONDANSETRON 4 MG INJ IV PRN (23:02)
[2019-02-11] VITALS (7 sets, daily range): BP systolic 99–129; BP diastolic 56–84; PULSE 72–87; RESP 16–20
[2019-02-11] MEDS: ONDANSETRON 4 MG INJ IV PRN (05:50)
[2019-02-11] MEDS: KETOROLAC 30 MG INJ IV PRN ×2 (05:51→12:59)
[2019-02-11] MEDS: CEFAZOLIN 2 GM/50 ML (PMX) 50 ML IVPB SCH ×2 (06:07→14:20)
[2019-02-11] MEDS: LACTATED RINGER'S 1,000 ML IV SCH ×2 (08:27→16:49)
[2019-02-11] MEDS: PRENATAL VITAMIN PO SCH (09:00)
[2019-02-11] MEDS: SENNA/DOCUSATE NA (8.6MG/50MG) TAB PO SCH ×2 (10:04→20:49)
--- NOTE | 2019-02-11 16:53 | OPR ---
DATE OF OPERATION: 02/10/2019 PREOPERATIVE DIAGNOSES: 1. A 35 weeks and 5/7 weeks' intrauterine , twins. 2. The patient decided to have sterilization. 3. Multiparity. POSTOPERATIVE DIAGNOSES: 1. A 35 weeks and 5/7 weeks' intrauterine , twins. 2. The patient decided to have sterilization. 3. Multiparity. OPERATION PERFORMED: Primary low transverse section, complete breech extraction on twin B a nd bilateral tubal ligation and transection. SURGEON: Larissa Underwood MD AREA SAFETY MANAGER: Debbie Blakely MD ANESTHESIA: Spinal. ANESTHESIOLOGIST: Avelino Jack MD OPERATIVE TECHNIQUE: Under spinal anesthesia, the patient was prepped and draped in the usual fashio n for abdominal surgery. After checking for the effect of the anesthesia, a Pfannenstiel incision, 1 0 cm skin incision was performed. The incision was carried from the skin up to the fascia. Upon ope keke the skin up to the fascia, small blood vessels were noted to be oozing and these were all cauter ized. Fascia was opened transversely followed by splitting the muscles vertically and the peritoneum vertically. Upon opening the abdominal cavity, the bladder blade was put in place. A small gustavo wa s performed from the serosa up to the endometrium on the lower uterine segment and the gustavo was lucy ed sideways with the aid of my 2 fingers. My left hand was inserted in the lower segment of the uter us and the bag of water was ruptured. Clear fluid was noted. Baby's head was delivered. Baby's air ways were quickly suctioned with amniotic fluid. The anterior shoulder, posterior shoulder and the r est of the body of the baby was delivered. Baby's cord was clamped and baby was handed to the NICU t eam. Cord segment was obtained for blood gases. Cord blood was obtained. The second baby was deliv ered by rupturing the bag of water and delivering the baby by complete breech extraction without diff iculty. Once again, the mouth was suctioned with amniotic fluid, then the cord was clamped. Baby wa s handed to the NICU team. Cord segment was obtained for blood gases and then cord blood was obtaine d. The placenta was delivered manually and complete. The uterus was exteriorized. The uterus was c leansed with wet lap sponge to make sure that no membranes were left behind. After correct spo nge count, the uterus was closed in the usual fashion using #1 chromic for the first layer, continuou s locking suture was used followed by #1 chromic for the second layer, imbricating sutures were used. Bleeders were checked and there was no bleeding noted. After checking for any bleeders in which th ere were none, both tubes and ovaries were inspected. They were healthy looking. The back of the ut erus was checked for any hematoma and there was none noted. Then, the right tube was grasped on the center where the avascular area was. A 1 cm tube was stick tied at the proximal and distal portions with 2-0 silk stick tie with 2-0 chromic above the first silk tie and another free tie with 2-0 chrom ic above the second tie. The right tube was cut and the cut ends were cauterized. The fimbria were identified. They were healthy looking. Same thing was done on the left side. Both fimbria were yanick ntified. Then after checking for any bleeders in which there were none, the uterus was put back to t pelvic cavity. Once again, uterine incision was checked for any bleeders and there was no bleedin g noted. Then, after correct sponge count, needle count and instrument count as confirmed by the scr ub tech and customer relations advisor, the abdomen was closed in the usual fashion using 0 Vicryl for the peritoneum , 0 Vicryl for the muscles. For the fascia, 0 Vicryl continuous stitch was used followed by few figu re-of-eight sutures. For the subcutaneous tissue, it was closed with 3-0 Vicryl and the skin was honorio sed with 3-0 Vicryl, subcuticular suture was used. The patient tolerated the procedure well. Estima enrique blood loss about was 700 mL. Vital signs were stable during and after the procedure. She delive red a healthy baby. Baby twin A, delivered a healthy baby boy, Apgars 9 and 9, 2700 grams 18-1/2 inc hes long and at 20:47. Baby B was a baby girl, 8 and 9, at 20:48, weight 2425 grams 18-1/2 inc hes long. Dictated By: LARISSA ALEXIS/PAGE Conf#: [id number] [facility]#: [id number]
--- NOTE | 2019-02-11 16:59 | PN ---
Date/Time of Note Date/Time of Note DATE: 02/11/19 TIME: 16:58 Assessment/Plan VTE Prophylaxis Risk score (from Ns)>0 risk: 3 SCD applied (from Ns): Yes Pharmacological prophylaxis: NA/contraindicated Pharm contraindication: low risk/ambulating Lines/Catheters [facility] Peripheral IV Assessment/Plan Assessment/Plan POSTCSECTION DAY 1 CHRONIC IRON DEFICIENCY ANEMIA ORDERED ADVANCE DIET TOLERATED CBC ON 3RD POSTOP DAY Result Diagram: 02/11/19 0713 02/11/19 0713 Results 24hrs Laboratory Tests Test 02/10/19 21:30 02/10/19 21:34 02/10/19 21:37 02/11/19 06:46 Blood Gas Blood venous CBV CBA Specimen Source Arterial Blood 02/10/2019 9:30:1 02/10/2019 9:44: 02/10/2019 10:00 Date Drawn 6 PM 46 PM :36 PM Arterial Blood CORD CORD CORD Gas Puncture Site Minor Test N/A N/A N/A Cord Blood 1.4 1.5 0.9 Carboxyhemoglob in Cord Venous 7.368 7.362 Blood pH Cord Venous 31.9 33.1 Blood PCO2 Cord Venous 41.3 30.5 Blood PO2 Cord Venous 17.9 L 18.4 L Blood HCO3 Cord Venous -6.3 -6.0 Blood Base Excess POC Cord Venous 86.4 74.0 Blood Oxygen Sat Cord Venous 12.6 15.0 Blood Hemoglobin Cord Venous 84.6 72.6 Blood Oxyhemogl obin Cord Venous 0.7 0.4 Blood Methemogl obin Blood Gas 37.0 37.0 37.0 Temperature Blood Gas ROOM AIR ROOM AIR ROOM AIR Modality FiO2 21.0 21.0 21.0 Blood Gas Aria PEREA RN Critical Value Read Back Blood Gas AHAZHANNAON ENVIRONMENTAL ENGINEER AHARINA ENVIRONMENTAL ENGINEER NAOMY ENVIRONMENTAL ENGINEER Notified Whom Blood Gas 02/10/2019 9:38:0 02/10/2019 9:47: 02/10/2019 10:06 Notified Time 8 PM 55 PM :25 PM Cord Arterial 7.341 Blood pH Cord Arterial 36.8 Blood PCO2 Cord Arterial 19.1 Blood PO2 Cord Arterial 19.5 L Blood HCO3 Cord Arterial -5.6 Blood Base Excess POC Cord 45.1 Arterial Blood O2 Sat Cord Arterial 14.4 Blood Hemoglobin Cord Arterial 43.8 Blood Oxyhemogl obin Cord Arterial 2.0 Blood Methemogl obin Blood Gas A-a 86.6 O2 Differential Lab Scanned REFERENCE LAB Report Test 02/11/19 07:13 White Blood 12.5 #H Count Red Blood Count 3.29 L Hemoglobin 9.5 L Hematocrit 28.5 L Mean 86.6 Corpuscular Volume Mean 28.9 L Corpuscular Hemoglobin Mean 33.3 Corpuscular Hemoglobin Conc ent Red Cell 13.2 Distribution Width Platelet Count 194 Mean Platelet 10.5 H Volume Immature 0.400 Granulocytes % Neutrophils % 85.2 H Lymphocytes % 8.5 L Monocytes % 5.8 Eosinophils % 0.0 Basophils % 0.1 Nucleated Red 0.0 Blood Cells % Immature 0.050 H Granulocytes # Neutrophils # 10.7 H Lymphocytes # 1.1 Monocytes # 0.7 Eosinophils # 0.0 Basophils # 0.0 Nucleated Red 0.0 Blood Cells # Sodium Level 136 Potassium Level 4.2 Chloride Level 110 Carbon Dioxide 21 Level Anion Gap 5 Blood Urea 7 Nitrogen Creatinine 0.46 Est Glomerular > 60 Filtrat Rate mL/min Glucose Level 84 Calcium Level 9.2 Subjective 24 Hr Interval Summary Free Text/Dictation POST CSECTION DAY 1 COMPLAIN OF INCISIONAL PAINS GOOD URINE OUTPUT PASSING GAS PER RECTUM NO BOWEL MOVEMENT YET Exam/Review of Systems Exam Vitals Vital Signs Date Temp Pulse Resp B/P (MAP) Pulse Ox O2 O2 Flow FiO2 Time Delivery Rate 02/11/19 98.2 83 16 99/60 (73) Room Air 12:00 02/11/19 97 08:30 Intake and Output 02/10/19 02/10/19 02/11/19 1515:00 23:00 07:00 IntakeIntake Total 1000 ml 2120 ml 655 ml OutputOutput Total 800 ml 965 ml BalanceBalance 1000 ml 1320 ml -310 ml Exam VITAL SIGNS STABLE: YES AFEBRILE: YES BREAST NOT ENGORGED, NON-TENDER, NO APPRECIABLE MASS: YES LUNGS CLEAR, NO RALES, WHEEZES, RHONCHI: YES SINUS RHYTHM WITHOUT MURMUR: YES ABDOMEN: NON-TENDER FUNDUS: BELOW UMBILICUS BOWEL SOUNDS: PRESENT UTERUS: FIRM INCISION (CLEAN, DRY, AND INTACT): YES LOCHIA: LIGHT DEEP TENDON REFLEXES: 0 EXTREMITIES: NO CALF TENDERNESS EDEMA SCALE: NONE Results Results 24hrs Laboratory Tests Test 02/10/19 21:30 02/10/19 21:34 02/10/19 21:37 02/11/19 06:46 Blood Gas Blood venous CBV CBA Specimen Source Arterial Blood 02/10/2019 9:30:1 02/10/2019 9:44: 02/10/2019 10:00 Date Drawn 6 PM 46 PM :36 PM Arterial Blood CORD CORD CORD Gas Puncture Site Minor Test N/A N/A N/A Cord Blood 1.4 1.5 0.9 Carboxyhemoglob in Cord Venous 7.368 7.362 Blood pH Cord Venous 31.9 33.1 Blood PCO2 Cord Venous 41.3 30.5 Blood PO2 Cord Venous 17.9 L 18.4 L Blood HCO3 Cord Venous -6.3 -6.0 Blood Base Excess POC Cord Venous 86.4 74.0 Blood Oxygen Sat Cord Venous 12.6 15.0 Blood Hemoglobin Cord Venous 84.6 72.6 Blood Oxyhemogl obin Cord Venous 0.7 0.4 Blood Methemogl obin Blood Gas 37.0 37.0 37.0 Temperature Blood Gas ROOM AIR ROOM AIR ROOM AIR Modality FiO2 21.0 21.0 21.0 Blood Gas Aria PEREA RN Critical Value Read Back Blood Gas AHAZHANNAON ENVIRONMENTAL ENGINEER AHALCON ENVIRONMENTAL ENGINEER AHARINA ENVIRONMENTAL ENGINEER Notified Whom Blood Gas 02/10/2019 9:38:0 02/10/2019 9:47: 02/10/2019 10:06 Notified Time 8 PM 55 PM :25 PM Cord Arterial 7.341 Blood pH Cord Arterial 36.8 Blood PCO2 Cord Arterial 19.1 Blood PO2 Cord Arterial 19.5 L Blood HCO3 Cord Arterial -5.6 Blood Base Excess POC Cord 45.1 Arterial Blood O2 Sat Cord Arterial 14.4 Blood Hemoglobin Cord Arterial 43.8 Blood Oxyhemogl obin Cord Arterial 2.0 Blood Methemogl obin Blood Gas A-a 86.6 O2 Differential Lab Scanned REFERENCE LAB Report Test 02/11/19 07:13 White Blood 12.5 #H Count Red Blood Count 3.29 L Hemoglobin 9.5 L Hematocrit 28.5 L Mean 86.6 Corpuscular Volume Mean 28.9 L Corpuscular Hemoglobin Mean 33.3 Corpuscular Hemoglobin Conc ent Red Cell 13.2 Distribution Width Platelet Count 194 Mean Platelet 10.5 H Volume Immature 0.400 Granulocytes % Neutrophils % 85.2 H Lymphocytes % 8.5 L Monocytes % 5.8 Eosinophils % 0.0 Basophils % 0.1 Nucleated Red 0.0 Blood Cells % Immature 0.050 H Granulocytes # Neutrophils # 10.7 H Lymphocytes # 1.1 Monocytes # 0.7 Eosinophils # 0.0 Basophils # 0.0 Nucleated Red 0.0 Blood Cells # Sodium Level 136 Potassium Level 4.2 Chloride Level 110 Carbon Dioxide 21 Level Anion Gap 5 Blood Urea 7 Nitrogen Creatinine 0.46 Est Glomerular > 60 Filtrat Rate mL/min Glucose Level 84 Calcium Level 9.2 Medications Medication Current Medications Lactated Ringer's 1,000 ml @ 125 mls/hr Q8H IV Last administered on 02/11/19at 16:49; Admin Dose 125 MLS/HR; Start 02/10/19 at 15:52 Cefazolin Sodium/ Dextrose 50 ml @ 100 mls/hr Q8 IVPB Last administered on 02/11/19at 14:20; Admin Dose 100 MLS/HR; Start 02/10/19 at 16:00 Prenat Multivit/ Furniture Delivery Driver/Iron/Folic Ac () 1 tab DAILY PO ; Start 02/11/19 at 09:00 Acetaminophen (Tylenol Tab) 650 mg Q4H PRN PO .PAIN OR TEMP; Start 02/10/19 at 16:00 Al Hydrox/Mg Hydrox/Simethicone (Mag-Al Plus) 30 ml Q6H PRN PO .GI UPSET; Start 02/10/19 at 16:00 Butorphanol Tartrate (Stadol) 2 mg Q2H PRN IV .PAIN Last administered on 02/10/19at 16:55; Admin Dose 2 MG; Start 02/10/19 at 17:00 Oxytocin/Lactated Ringer's 500 ml @ 125 mls/hr POST IV Last administered on 02/10/19at 22:01; Admin Dose 125 MLS/HR; Start 02/10/19 at 18:00 Hydromorphone HCl (Dilaudid) 0.2 mg Q2H PRN IV .PAIN 1-5; Start 02/10/19 at 21:00 Hydromorphone HCl (Dilaudid) 0.4 mg Q2H PRN IV .PAIN 6-10; Start 02/10/19 at 21:00 Morphine Sulfate (morphine) 2 mg Q2H PRN IV .PAIN 1-5; Start 02/10/19 at 21:00 Morphine Sulfate (morphine) 4 mg Q2H PRN IV .PAIN 6-10; Start 02/10/19 at 21:00 Ketorolac Tromethamine (Toradol) 30 mg Q6H PRN IV .PAIN 6-10 Last administered on 02/11/19at 12:59; Admin Dose 30 MG; Start 02/10/19 at 21:00; Stop 02/13/19 at 20:59 Acetaminophen (Tylenol Tab) 500 mg Q4H PRN PO .PAIN 1-3; Start 02/10/19 at 21:00 Diphenhydramine HCl (Benadryl) 25 mg Q4H PRN IV .PRURITUS; Start 02/10/19 at 21:00 Nalbuphine HCl (Nubain) 10 mg Q4H PRN IV .PRURITUS; Start 02/10/19 at 21:00 Ondansetron HCl (Zofran Inj) 4 mg Q6H PRN IV .NAUSEA/VOMITING Last administered on 02/11/19at 05:50; Admin Dose 4 MG; Start 02/10/19 at 21:00 Naloxone HCl (Narcan) 0.2 mg Q2M PRN IV .RESP RATE; Start 02/10/19 at 21:00 Miscellaneous Information (* Miscellaneous Pharmacy Order) DURAMORPH: 0.2 MG SPI... GIVEN NEURAXIAL XX ; Start 02/10/19 at 21:00 Methylergonovine Maleate (Methergine) 0.2 mg Q6H PRN PO .VAGINAL BLEEDING; Start 02/10/19 at 22:00 Acetaminophen/ Hydrocodone Bitart ([place] (5/325)) 1 tab Q4H PRN PO MODERATE PAIN LEVEL 4-6; Start 02/10/19 at 22:00 Acetaminophen/ Hydrocodone Bitart ([place] (5/325)) 2 tab Q4H PRN PO SEVERE PAIN LEVEL 7-10; Start 02/10/19 at 22:00 Ibuprofen (Motrin) 800 mg Q8 PRN PO MILD PAIN LEVEL 1-3; Start 02/10/19 at 22:00 Simethicone (Mylicon) 160 mg Q8H PRN PO .GAS; Start 02/10/19 at 22:00 Senna/Docusate Sodium (Senokot-S) 1 tab BID PO Last administered on 02/11/19at 10:04; Admin Dose 1 TAB; Start 02/11/19 at 09:00 Lanolin (Lanolin Hpa) 1 applic BEDSIDE MEDICATION PRN TOP .NIPPLES; Start 02/10/19 at 22:00 Diphtheria/ Tetanus/Acell Pertussis (Adacel) 0.5 ml ONCE ONCE IM* ; Start 02/13/19 at 09:00; Stop 02/13/19 at 09:01 Measles/Mumps/ Rubella Vaccine Live (Mmr Ii Vaccine) 0.5 ml ONCE ONCE SC* ; Start 02/13/19 at 09:00; Stop 02/13/19 at 09:01 Oxytocin/Lactated Ringer's 500 ml @ 0 mls/hr ONCE PRN IV .VAGINAL BLEEDING; Start 02/10/19 at 22:00 Methylergonovine Maleate (Methergine) 0.2 mg ONCE PRN IM .VAGINAL BLEEDING; Start 02/10/19 at 22:00 Carboprost Tromethamine (Hemabate) 250 mcg ONCE PRN IM .VAGINAL BLEEDING; Start 02/10/19 at 22:00 Misoprostol (Cytotec) 1,000 mcg ONCE PRN [place] .VAGINAL BLEEDING; Start 02/10/19 at 22:00 LARISSA AGUILAR MD February 11, 2019 16:59
[2019-02-11] MEDS: HYDROCODONE/APAP (5/325) TAB PO PRN (20:48)
[2019-02-12] MEDS ORDERED: MAGNESIUM HYDROXIDE 30ML CUP PO PRN (01:00)
[2019-02-12] MEDS: HYDROCODONE/APAP (5/325) TAB PO PRN ×4 (01:43→18:03)
[2019-02-12 04:00] VITALS: BP 101/60; PULSE 74; RESP 17
[2019-02-12] MEDS ORDERED: BISACODYL 10 MG SUPP PR ONE ×2 (06:00→18:00)
[2019-02-12 07:50] VITALS: BP 108/67; PULSE 89; RESP 18
[2019-02-12] MEDS: LACTATED RINGER'S 1,000 ML IV SCH (07:52)
[2019-02-12] MEDS: IBUPROFEN 800 MG TAB PO PRN ×2 (08:46→16:48)
[2019-02-12] MEDS: SENNA/DOCUSATE NA (8.6MG/50MG) TAB PO SCH ×2 (08:46→21:10)
[2019-02-12] MEDS: PRENATAL VITAMIN PO SCH (08:46)
[2019-02-12] MEDS: CEPHALEXIN 500 MG CAP PO SCH ×3 (10:14→21:39)
[2019-02-12] MEDS ORDERED: HYDROCODONE/APAP (5/325) TAB PO ONE (14:40)
[2019-02-12 16:48] VITALS: BP 102/71; PULSE 88; RESP 18
--- NOTE | 2019-02-12 19:39 | PN ---
Date/Time of Note Date/Time of Note DATE: 02/12/19 TIME: 19:37 Assessment/Plan VTE Prophylaxis Risk score (from Nsg)>0 risk: 3 SCD applied (from Nsg): No SCD contraindicated: low risk/ambulating Pharmacological prophylaxis: NA/contraindicated Pharm contraindication: low risk/ambulating Lines/Catheters IV Catheter Type (from Nrsg): Saline Lock Assessment/Plan Assessment/Plan POST CSECTION DAY 2 CHRONIC IRON DEFICIENCY ANEMIA HOME TOMORROW CBC TOMORROW COUNSELED INSTRUCTED PRESCRIPTION GIVEN FOR PAIN RETURN TO CLINIC IN 2 WEEKS CALL OFFICE IF THERE IS ANY PROBLEM OR CONCERN CONTINUE WITH VITAMINS OD AND FERROUS SULFATE 325MG PO TID DIET ADVISED Result Diagram: 02/11/1913 02/11/19712 Subjective 24 Hr Interval Summary Free Text/Dictation POST CSECTION DAY 2 LITTLE BOWEL MOVEMENT GOOD URINE OUTPUT FEELS LESS INCISIONAL PAINS Exam/Review of Systems Exam Vitals Vital Signs Date Temp Pulse Resp B/P (MAP) Pulse Ox O2 O2 Flow FiO2 Time Delivery Rate 02/12/19 98.1 88 18 102/71 Room Air 16:48 (81) 02/11/19 97 08:30 Intake and Output 02/11/19 02/11/19 02/12/19 1515:00 23:00 07:00 IntakeIntake Total 320 ml 1475 ml OutputOutput Total 175 ml 750 ml 600 ml BalanceBalance 145 ml 725 ml -600 ml Exam VITAL SIGNS STABLE: YES AFEBRILE: YES BREAST NOT ENGORGED, NON-TENDER, NO APPRECIABLE MASS: YES LUNGS CLEAR, NO RALES, WHEEZES, RHONCHI: YES SINUS RHYTHM WITHOUT MURMUR: YES ABDOMEN: NON-TENDER FUNDUS: BELOW UMBILICUS BOWEL SOUNDS: PRESENT UTERUS: FIRM INCISION (CLEAN, DRY, AND INTACT): YES LOCHIA: LIGHT DEEP TENDON REFLEXES: 0 EXTREMITIES: NO CALF TENDERNESS EDEMA SCALE: NONE Medications Medication Current Medications Prenat Multivit/ Looping Inspector/Iron/Folic Ac () 1 tab DAILY PO Last administered on 02/12/19at 08:46; Admin Dose 1 TAB; Start 02/11/19 at 09:00 Acetaminophen (Tylenol Tab) 650 mg Q4H PRN PO .PAIN OR TEMP; Start 02/10/19 at 16:00 Al Hydrox/Mg Hydrox/Simethicone (Mag-Al Plus) 30 ml Q6H PRN PO .GI UPSET; Start 02/10/19 at 16:00 Acetaminophen (Tylenol Tab) 500 mg Q4H PRN PO .PAIN 1-3; Start 02/10/19 at 21:00 Naloxone HCl (Narcan) 0.2 mg Q2M PRN IV .RESP RATE; Start 02/10/19 at 21:00 Miscellaneous Information (* Miscellaneous Pharmacy Order) DURAMORPH: 0.2 MG SPI... GIVEN NEURAXIAL XX ; Start 02/10/19 at 21:00 Methylergonovine Maleate (Methergine) 0.2 mg Q6H PRN PO .VAGINAL BLEEDING; Start 02/10/19 at 22:00 Acetaminophen/ Hydrocodone Bitart ([place] (5/325)) 1 tab Q4H PRN PO MODERATE PAIN LEVEL 4-6; Start 02/10/19 at 22:00 Acetaminophen/ Hydrocodone Bitart ([place] (5/325)) 2 tab Q4H PRN PO SEVERE PAIN LEVEL 7-10 Last administered on 02/12/19at 18:03; Admin Dose 2 TAB; Start 02/10/19 at 22:00 Ibuprofen (Motrin) 800 mg Q8 PRN PO MILD PAIN LEVEL 1-3 Last administered on 02/12/19at 16:48; Admin Dose 800 MG; Start 02/10/19 at 22:00 Simethicone (Mylicon) 160 mg Q8H PRN PO .GAS Last administered on 02/12/19at 09:47; Admin Dose 160 MG; Start 02/10/19 at 22:00 Senna/Docusate Sodium (Senokot-S) 1 tab BID PO Last administered on 02/12/19at 08:46; Admin Dose 1 TAB; Start 02/11/19 at 09:00 Lanolin (Lanolin Hpa) 1 applic BEDSIDE MEDICATION PRN TOP .NIPPLES; Start 02/10/19 at 22:00 Diphtheria/ Tetanus/Acell Pertussis (Adacel) 0.5 ml ONCE ONCE IM* ; Start 02/13/19 at 09:00; Stop 02/13/19 at 09:01 Measles/Mumps/ Rubella Vaccine Live (Mmr Ii Vaccine) 0.5 ml ONCE ONCE SC* ; Start 02/13/19 at 09:00; Stop 02/13/19 at 09:01 Oxytocin/Lactated Ringer's 500 ml @ 0 mls/hr ONCE PRN IV .VAGINAL BLEEDING; Start 02/10/19 at 22:00 Methylergonovine Maleate (Methergine) 0.2 mg ONCE PRN IM .VAGINAL BLEEDING; Start 02/10/19 at 22:00 Carboprost Tromethamine (Hemabate) 250 mcg ONCE PRN IM .VAGINAL BLEEDING; Start 02/10/19 at 22:00 Misoprostol (Cytotec) 1,000 mcg ONCE PRN [place] .VAGINAL BLEEDING; Start 02/10/19 at 22:00 Magnesium Hydroxide (Milk Of Mag) 30 ml BID PRN PO CONSTIPATION Last administered on 02/12/19at 09:47; Admin Dose 30 ML; Start 02/12/19 at 01:00 Cephalexin (Keflex) 500 mg Q8 PO Last administered on 02/12/19at 16:48; Admin Dose 500 MG; Start 02/12/19 at 10:00 LARISSA AGUILAR MD February 12, 2019 19:39
[2019-02-12 20:20] VITALS: BP 104/59; PULSE 77; RESP 18
[2019-02-13] MEDS: IBUPROFEN 800 MG TAB PO PRN ×2 (00:50→08:51)
[2019-02-13] MEDS: HYDROCODONE/APAP (5/325) TAB PO PRN ×3 (01:46→14:05)
[2019-02-13 04:00] VITALS: BP 104/51; RESP 19
[2019-02-13] MEDS: CEPHALEXIN 500 MG CAP PO SCH ×2 (05:44→14:04)
[2019-02-13] MEDS: PRENATAL VITAMIN PO SCH (08:52)
[2019-02-13] MEDS: SENNA/DOCUSATE NA (8.6MG/50MG) TAB PO SCH (08:52)
[2019-02-13] MEDS ORDERED: DIPHTH/TET/ACEL PERTUSS (ADULT) 0.5 ML VIAL IM* ONE (09:00)
[2019-02-13] MEDS ORDERED: MEASLES,MUMPS,RUBELLA VACCINE INJ SC* ONE (09:00)
--- NOTE | 2019-02-13 23:21 | NSTRPT ---
NST Information Datetime Report Generated by CPN: 02/13/2019 23:21 Datetime: 02/10/2019 09:59 NST Information EGA: 35.3 Test Number: 1 Time on Monitor: 02/10/2019 10:34 Time off Monitor: 02/10/2019 11:09 NST Duration (Min): 35 Reason for NST: Multiple Gestation; Other Reason for NST Other: TWINS Test and Monitor Explained: Monitor Explained; Test Explained; Verbalized Understanding Pulse: 105 Resp: 18 SBP: 103 DBP: 57 Test Evaluation NST Interventions: None Patient States Movement: Present Contraction Frequency: 2-6/30-80/MILDPAIN LEVEL 2 FHR Baseline : 150 Variability: Moderate 6-25bpm Accelerations: 15X15 Decelerations: None FHR Category: Category I NST Results: Reactive Provider Notified: Dr Espinoza notifed of [facility] _ reviewed strip;Dr Underwood re [facility] Comments: PT TO U/S TWIN A MVP 4.9 cm cephalic maternal left TWIN B MVP 4.5 cm breech maternal right 1114 Dr Underwood notifed of [facility] -pt to go to triage for observation records _ preliminary US report faxed to triage, report to W Ivan RN NST Baby B Patient States Movement: Present FHR Baseline: 140 Variability: Moderate 6-25bpm Accelerations: 15X15 Decelerations: Variable FHR Category: Category II NST Results: Reactive Electronically Signed By E-Signature: with User ID: [id number]
--- NOTE | 2019-02-14 16:16 | DELSUM ---
Delivery Summary A-C Datetime Report Generated by CPN: 02/14/2019 16:16 DELIVERY PERSONNEL Instructional Leader: Roxana Christensen MATERNAL INFORMATION Delivery Anesthesia: Spinal Medications in Delivery: See anesthesia record Placenta Cultured: No Maternal Complications: None RN Comments: Labor LABOR SUMMARY EDC: 03/14/2019 00:00 No. Babies in Womb: 2 Attempted: No Labor Anesthesia: None LABOR INFORMATION Reason for Induction: Not Applicable Onset of Labor: 02/10/2019 12:00 Oxytocin: N/A Group B Beta Strep: Not Done Antibiotics # of Doses: 2 Antibiotics Time of Last Dose: 02/10/2019 19:30 Steroids Given: >24Hs before Delivery Reason Steroids Not Administered: Not Applicable MEMBRANES Membranes Rupture Method: Artificial Rupture of Membranes: 02/10/2019 20:46 Length of Rupture (hr): 0.02 Amniotic Fluid Color: Clear Amniotic Fluid Amount: Moderate Amniotic Fluid Odor: Normal STAGES OF LABOR Stage 3 hr: 0 Stage 3 min: -1 Total Time in Labor hr: 8 Total Time in Labor min: 46 CSECTION DELIVERY Primary Indication: Multiple Gestation Secondary Indication: N/A CSection Urgency: Non Elective CSection Incidence: Primary Labor: Labor Elective: Nonelective CSection Incision: Lower Uterine Transverse BABY A INFORMATION Delivery Date/Time: 02/10/2019 20:47 Method of Delivery: Born in Route : No : N/A Forceps: N/A Vacuum Extraction: N/A Shoulder Dystocia : No SHOULDER DYSTOCIA BABY A Infant Delivery Date/Time: 02/10/2019 20:47 PRESENTATION/POSITION BABY A Presentation: Cephalic Cephalic Presentation: Vertex Breech Presentation: N/A PLACENTA INFORMATION BABY A Placenta Delivery Time : 02/10/2019 20:46 Placenta Method of Delivery: Manual Removal Placenta Status: Delivered SCORES BABY A Heart Rate 1 min: >100 bpm Resp Effort 1 min: Good Cry Reflex Irritability 1 min: Cough/Sneeze/Pulls Away Muscle Tone 1 min: Active Motion Color 1 min: Body [place], Extremit Blue Resuscitation Effort 1 min: Tactile Stimulation SCORE 1 MIN: 9 Heart Rate 5 min: >100 bpm Resp Effort 5 min: Good Cry Reflex Irritability 5 min: Cough/Sneeze/Pulls Away Muscle Tone 5 min: Active Motion Color 5 min: Body [place], Extremit Blue Resuscitation Effort 5 min: N/A SCORE 5 MIN: 9 INFORMATION BABY A Gestational Age at Delivery: 35.3 Gestational Status: Late - 34- 36.6 Weeks Outcome : Liveborn Condition : Stable Infant Sex: Male IDENTIFICATION/MEDS BABY A ID Band Number: [id number] ID Band Location: Right Leg; Left Arm Sensor Applied: No Vitamin K Given : Not Given Erythromycin Given: Not Given WEIGHT/LENGTH BABY A Birthweight (gm): 2700 Infant Weight (lb): 5 Weight (oz): 15 Length (in): 18.50 Length (cm): 46.99 CORD INFORMATION BABY A No. Cord Vessels: 3 (Annotations: Data stored by N on behalf of user) Nuchal Cord : N/A Infant Cord pH Baby Venous: 7.37 Cord Blood Taken: Yes Suction: Mouth; Nose ASSESSMENT BABY A Complications: None Physical Findings at Delivery: Within Normal Limits Respirations: Grunting; Intercostal Retractions Biology Lecturer/ALS Called : Yes Care By: Aria Mcdaniels RT and Marek Bran RT Transferred To: NICU BABY B INFORMATION Delivery Date/Time: 02/10/2019 20:48 Method of Delivery : Born in Route : No : N/A Forceps : N/A Vacuum Extraction: N/A Shoulder Dystocia : No SHOULDER DYSTOCIA BABY B Infant Delivery Date/Time: 02/10/2019 20:48 PRESENTATION/POSITION BABY B Presentation : Breech Cephalic Position : N/A Breech Position: Complete ROM/PLACENTA INFO BABY B Rupture of Membranes: 02/10/2019 20:48 Length of Rupture (hr): 0.00 Placenta Delivery Time : 02/10/2019 20:50 Placenta Method of Delivery: Manual Removal Placental Status : Delivered SCORES BABY B Heart Rate 1 min: >100 bpm Resp Effort 1 min: Good Cry Reflex Irritability 1 min: Cough/Sneeze/Pulls Away Muscle Tone 1 min: Active Motion Color 1 min: Blue/Pale Resuscitation Effort 1 min: Tactile Stimulation SCORE 1 MIN: 8 Heart Rate 5 min: >100 bpm Resp Effort 5 min: Good Cry Reflex Irritability 5 min: Cough/Sneeze/Pulls Away Muscle Tone 5 min: Active Motion Color 5 min: Body [place], Extremit Blue Resuscitation Effort 5 min: N/A SCORE 5 MIN: 9 INFANT INFORMATION BABY B Gestational Age at Delivery: 35.3 Gestational Status : Late - 34- 36.6 Weeks Outcome : Liveborn Condition : Stable Infant Sex : Female IDENTIFICATION/MEDS BABY B ID Band Number : [id number] ID Band Location : Right Leg; Left Arm Sensor Applied: Yes Sensor Number : [id number] Sensor Location : Cord Clamp Vitamin K Given : Not Given Erythromycin Given : Not Given WEIGHT/LENGTH BABY B Infant Birthweight (gm): 2410 Infant Weight (lb) : 5 Infant Weight (oz): 5 Length (in): 18.50 Infant Length (cm): 46.99 CORD INFORMATION BABY B No. Cord Vessels : 3 Nuchal Cord : N/A Cord pH Arterial: 7.34 Cord pH Venous: 7.36 Cord Blood Taken : Yes Infant Suction : Mouth; Nose ASSESSMENT BABY B Infant Complications : None Physical Findings at Delivery: Within Normal Limits Respirations : Appears Normal Biology Lecturer/ALS Called : Yes Infant Care By : Benny Singh and Aria Mcdaniels RN Transfer To: Remains with Mother
== END 2019-02-13 16:15 | disposition home or self-care (01) | DRG 785 ==
LOC: OBT 12:09 → L-D 12:09 → OBT 16:00 → PP1 02-11 00:03
PROVIDERS: ADMIT Obstetrics & Gynecology; ATTEND Obstetrics & Gynecology
PROC: 0UB70ZZ Excision of Bilateral Fallopian Tubes, Open Approach (ICD-10-PCS; 2019-02-10)
PROC: 10D00Z1 Extraction of Products of Conception, Low, Open Approach (ICD-10-PCS; principal; 2019-02-10 21:00)
DX: O30.043 Twin pregnancy, dichorionic/diamniotic, third trimester (principal); O99.02 Anemia complicating childbirth; D50.9 Iron deficiency anemia, unspecified; G89.18 Other acute postprocedural pain; Z3A.35 35 weeks gestation of pregnancy; Z37.2 Twins, both liveborn; Z30.2 Encounter for sterilization; Z23 Encounter for immunization
CPT/HCPCS: 36415; 36600; 76815; 76817; 76818; 80048; 80053; 81001; 82803; 85025; 85610; 85730; 86592; 86850; 86870; 86900; 86901; 87086; 88302; 88307; 90715; 96360; 96361; 99464; G0463; J0595; J0690; J1100; J1885; J2274; J2370; J2405; J2590; J2765; J7120